=== PATIENT | male | born 1945 | race Caucasian/White ===

== ENCOUNTER 2020-07-01 08:34 | Day surgery (SDC) | payer OTHER ==
[~2020-07-01] VITALS: Ht 180.3 cm; Wt 79.3 kg
[~2020-07-01 08:34] MED LIST: Aspir 8181 MG PO; CLOP75 PO; Lopressor 25 mg25 MG PO; Mirapex1 MG PO; NITR.4SL SL; OMEP20ER PO; PRAZ2 PO; SERT100 PO; SIMV40 PO
--- NOTE | 2020-07-01 10:08 | NUR ---
07/01/20 1008 Alonzo Greenwood BUPIVACAINE 0.5% 30 MLS MIXED WITH EPI 0.15ML TO MAKE BUPIVACAINE 0.5% 1:200,000 [facility] BY [facility]. VAZQUEZ. BUPIVACAINE 0.5% 1:200,[address]ITE [address] VAZQUEZ.
== END 2020-07-01 12:22 | disposition home or self-care (01) ==
LOC: ORSCSDS 08:34
PROVIDERS: Podiatrist Foot & Ankle Surgery
PROC: 0L8V0ZZ Division of Right Foot Tendon, Open Approach (ICD-10-PCS; principal; 2020-07-01 10:00)
PROC: 0SGM04Z Fusion of Right Metatarsal-Phalangeal Joint with Internal Fixation Device, Open Approach (ICD-10-PCS; principal; 2020-07-01 10:00)
DX: M20.5X1 Other deformities of toe(s) (acquired), right foot (principal); M20.42 Other hammer toe(s) (acquired), left foot; M20.11 Hallux valgus (acquired), right foot; Z79.899 Other long term (current) drug therapy; E78.5 Hyperlipidemia, unspecified; I10 Essential (primary) hypertension; K21.9 Gastro-esophageal reflux disease without esophagitis; Z87.891 Personal history of nicotine dependence; J44.9 Chronic obstructive pulmonary disease, unspecified; F32.9 Major depressive disorder, single episode, unspecified; Z79.82 Long term (current) use of aspirin; Z79.01 Long term (current) use of anticoagulants
CPT/HCPCS: A9270; C1713; J0171; J0690; J2250; J2704; J3010; J7120